=== PATIENT | male | born 1995 | race Hispanic/Latino ===

== ENCOUNTER 2019-01-22 21:49 | Emergency (ER) | payer BC ==
[2019-01-22 22:59] LABS: RED BLOOD CELL COUNT(AUTO) 5.05 MIL/uL (4.50-6.20)
[2019-01-22 23:01] LABS: APPEARANCE,URINE Clear (CLEAR); BILIRUBIN,URINE Negative (NEGATIVE); COLOR,URINE Yellow (YELLOW); GLUCOSE, URINE (UA) Negative (NEGATIVE); KETONES,URINE Negative (NEGATIVE); LEUKOCYTE ESTERASE ,URINE Negative (NEGATIVE); NITRATE,URINE Negative (NEGATIVE); OCCULT BLOOD,URINE Negative (NEGATIVE); PH,URINE 6.5 (5.0-8.0); PROTEIN,URINE Negative (NEGATIVE); UROBILINOGEN,URINE 0.2 mg/dL (0.2-1.0)
[2019-01-22] MEDS ORDERED: KETOROLAC TROMETHAMINE 30MG/ML ONE (23:02)
[2019-01-22 23:09] LABS: BASOPHILS % (AUTO) 0.5 % (0.0-5.0); EOSINOPHILS % (AUTO) 0.8 % (0.0-8.0); HEMATOCRIT 43.4 % (42-54); LYMPHOCYTES % (AUTO) 34.8 % (21.0-51.0); MEAN CORPUSCULAR HEMOGLOBIN 28.9 pg (27.0-33.0); MEAN CORPUSCULAR HGB CONC 33.6 g/dL (32.0-36.0); MEAN CORPUSCULAR VOLUME 85.8 fL (79-99); MONOCYTES % (AUTO) 6.2 % (3.0-13.0); NEUTROPHILS % (AUTO) 57.7 % (40.0-77.0); NUCLEATED RED BLOOD CELLS 0.1 % (0.0-0.19); PLATELET COUNT (AUTO) 303 K/uL (130-400); RED CELL DISTRIBUTION WIDTH 13.1 % (11.0-15.5); WHITE BLOOD COUNT (AUTO) 9.8 K/uL (4.8-10.8)
[2019-01-22 23:13] LABS: CREATININE 0.7 mg/dL (0.5-1.5); POTASSIUM 3.5 mmol/L (3.5-5.1)
[2019-01-22] MEDS ORDERED: CEFTRIAXONE SODIUM 500 MG VIAL ONE (23:49)
[2019-01-22] MEDS ORDERED: DOXYCYCLINE HYCLATE 100 MG TABLET PO ONE (23:50)
[2019-01-22] MEDS ORDERED: CEFTRIAXONE SODIUM 1 GM ONE (23:55)
== END 2019-01-23 00:21 | disposition home or self-care (01) ==
LOC: EDH 21:49
DX: N45.1 Epididymitis (principal); K64.8 Other hemorrhoids
CPT/HCPCS: 36415; 76870; 80048; 81003; 85025; 87486; 87797; 96374; 96375; 99285; J0696; J1885